=== PATIENT | male | born 1925 | race Caucasian/White ===

== ENCOUNTER → 2016-08-09 | Outpatient (CLI) | payer MEDICARE, OTHER ==
[~2016-08-09] MED LIST: ASPI-611 PO; FAMO-137 PO; SIMV80TA62 PO; TERA2CAP PO
--- NOTE | 2016-08-09 15:34 | DI ---
Indication: ITS.REASON: M79.661 Pain in right lower leg PROCEDURE: US VENOUS DUPLEX, LOWER EXT RT: Encounter: Initial Comparison: None Technique: Color Doppler duplex and grayscale sonographic imaging of the right lower extremity was performed. Findings: There is no evidence for acute deep venous thrombosis in the right thigh. Specifically, serial graded compression was performed from the inguinal ligament to the popliteal bifurcation, on the right thigh, demonstrating appropriate compressibility of the deep venous system. In addition, color and pulsed Doppler demonstrate appropriate spontaneous flow, variation with respiration, and augmentation with calf compression. At the ankle, normal flow is identified in the posterior tibial veins; these vessels are also normal in caliber. Impression: No evidence of acute DVT in the right lower limb. .
== END ==
LOC: IMA 15:07
PROVIDERS: ATTEND Family Medicine
DX: M79.661 Pain in right lower leg (principal)